=== PATIENT | female | born 1945 | race Asian ===

== ENCOUNTER 2023-07-21 06:32 | Inpatient (IN) | payer MEDICARE, OTHER ==
[~2023-07-21] VITALS: Ht 165.1 cm; Wt 101.0 kg
[2023-07-21] MEDS ORDERED: DEXAMETHASONE SOD PHOS 4 MG/ML VIAL IVP ONE (06:45)
[2023-07-21 07:00] VITALS: PULSE 64; RESP 31; O2SAT 98
[2023-07-21 07:07] LABS: BASOPHILS % (AUTO) 1.2 % (0.0-2.0); EOSINOPHILS % (AUTO) 4.9 % (1.0-6.0); HEMATOCRIT 26.6 % (36-46); HEMOGLOBIN 8.7 g/dL (12.0-16.0); LYMPHOCYTES # (AUTO) 0.8 K/uL (1.0-4.8); LYMPHOCYTES % (AUTO) 13.4 % (22.0-44.0); MEAN CORPUSCULAR HEMOGLOBIN 31.8 pg (26.0-34.0); MEAN CORPUSCULAR HGB CONC 32.7 G/dL (31.0-37.0); MEAN CORPUSCULAR VOLUME 98 fL (80-100); MONOCYTES # (AUTO) 0.5 K/uL (0.1-1.0); MONOCYTES % (AUTO) 7.8 % (2.0-9.0); NEUTROPHILS # (AUTO) 4.3 K/uL (1.8-7.7); NEUTROPHILS % (AUTO) 72.7 % (40.0-70.0); PLATELET COUNT (AUTO) 101 K/uL (150-450); RED BLOOD CELL COUNT(AUTO) 2.73 MIL/uL (4.00-5.20); RED CELL DISTRIBUTION WIDTH 17.2 % (11.5-14.5); WHITE BLOOD COUNT (AUTO) 5.9 K/uL (4.5-11.0)
[2023-07-21 07:14] LABS: ANION GAP 3 mmol/L (8-16); CALCIUM, TOTAL 9.7 mg/dL (8.8-10.5); CARBON DIOXIDE 37 mmol/L (22-29); CHLORIDE 102 mmol/L (98-107); CREATININE 3.18 mg/dL (0.60-1.30); GLOMERULAR FILTR. RATE CALC 14 mL/min (>60); GLUCOSE,RANDOM 136 mg/dL (70-110); POTASSIUM 4.1 mmol/L (3.5-5.1); SODIUM SERUM 142 mmol/L (136-145); UREA NITROGEN, BLOOD 81 mg/dL (7-18)
[2023-07-21 07:21] LABS: ALANINE AMINOTRANSFERASE 9 U/L (12-78); ALBUMIN 2.8 g/dL (3.4-5.0); ALKALINE PHOSPHATASE 92 U/L (46-116); ASPARTATE AMINOTRANSFERASE 29 U/L (15-37); CREATINE KINASE, TOTAL ONLY 51 U/L (26-192); PHOSPHORUS 4.1 mg/dL (2.5-4.9); TOTAL PROTEIN, SERUM 8.1 g/dL (6.4-8.2)
[2023-07-21 07:24] LABS: TROPONIN I-HIGH SENSITIVITY 35 ng/L (<51)
[2023-07-21] MEDS ORDERED: ONDANSETRON HCL 4 MG/2 ML VIAL IVP PRN (07:45)
[2023-07-21] MEDS ORDERED: ACETAMINOPHEN 325 MG TABLET PO PRN (07:45)
[2023-07-21] MEDS ORDERED: 0.9% SODIUM CHLORIDE 10 ML SYRINGE IVP PRN (07:45)
[2023-07-21 07:46] LABS: B-TYPE NATRIURETIC PEPTIDE 1630 pg/mL (0-100)
[2023-07-21 08:33] LABS: C-REACTIVE PROTEIN QUANT 1.02 mg/dL (0.00-0.30); FERRITIN 353 ng/mL (8-252)
[2023-07-21 08:35] LABS: COVID AG,FIA SOURCE NASOPHARYNGEAL
[2023-07-21 08:41] LABS: APPEARANCE,URINE HAZY (CLEAR); BILIRUBIN,URINE NEGATIVE (NEGATIVE); COLOR,URINE LIGHT YELLOW (YELLOW); GLUCOSE, URINE (UA) NEGATIVE (NEGATIVE); KETONES,URINE NEGATIVE (NEGATIVE); LEUKOCYTE ESTERASE ,URINE LARGE (NEGATIVE); NITRATE,URINE NEGATIVE (NEGATIVE); OCCULT BLOOD,URINE LARGE (NEGATIVE); PH,URINE 6.5 (5.0-8.0); PROTEIN,URINE 100-200,SEE CONFIRM mg/dL (NEGATIVE); SPECIFIC GRAVITIY, URINE 1.014 (1.003-1.030); UROBILINOGEN,URINE <=1.0 mg/dL (<=1.0)
[2023-07-21] MEDS ORDERED: DEXTROSE 5% IV ONE (08:45)
[2023-07-21] MEDS ORDERED: [UNRECOGNIZED DRUG - OTHER] IV ONE (08:45)
[2023-07-21] MEDS ORDERED: WATER IV ONE (08:45)
[2023-07-21 08:58] LABS: SULFOSALICYLIC ACID,URINE 2+ (Negative); WBC,URINE 26-50 /HPF (0-5)
[2023-07-21 08:59] LABS: BACTERIA,URINE Moderate /HPF (None Seen); YEAST,URINE Moderate /HPF (None Seen)
[2023-07-21 09:04] LABS: SARS-COV2 (COVID) ANTIGEN,FIA Negative (Negative)
[2023-07-21 09:08] LABS: INFLUENZA TYPE A NEGATIVE FOR TYPE A (NEGATIVE); INFLUENZA TYPE B NEGATIVE FOR TYPE B (NEGATIVE)
[2023-07-21 12:00] VITALS: BP 142/62; PULSE 56; RESP 25; TEMP 98.1; O2SAT 95
[2023-07-21] MEDS: CefTRIAXone 1 GM/DEXTROSE 50 ML IV SCH (12:22)
[2023-07-21 12:27] LABS: ABG BASE EXCESS 12.4 mmol/L (-2.0-3.0); ABG CARBOXYHEMOGLOBIN 1.6 % (0.0-1.5); ABG HCO3 34.1 mmol/L (22.0-26.0); ABG METHEMOGLOBIN 0.3 % (0.0-1.5); ABG OXYGEN SATURATION 92.9 % (95.0-98.0); ABG OXYHEMOGLOBIN 91.1 % (94.0-100.0); ABG PCO2 61 mmHg (35-45); ABG PH 7.401 (7.35-7.450); ABG TOTAL HEMOGLOBIN 10.9 G/dL (12.0-18.0); PO2, ARTERIAL BG 65.5 mmHg (75.0-83.0); SOURCE, BLOOD GAS ARTERIAL; TEMPERATURE, FAHRENHEIT, BG 97.5 FAHREN (96.0-98.6)
[2023-07-21 12:30] LABS: ALLEN TEST, BLOOD GAS Positive; O2 DEVICE,BLOOD GAS CANNULA (ROOM AIR); SITE, BLOOD GAS RT RADIAL
[2023-07-21] MEDS: DOXYCYCLINE HYCLATE 100 MG TABLET PO SCH ×2 (15:28→20:58)
[2023-07-21 16:00] VITALS: BP 144/60; PULSE 55; RESP 25; TEMP 98.9; O2SAT 93
[2023-07-21] MEDS ORDERED: GLUCAGON,HUMAN RECOMBINANT 1 MG VIAL IM PRN (18:00)
[2023-07-21] MEDS ORDERED: DEXTROSE 50%-WATER 25 GM/50 ML SYRINGE IVP PRN (18:00)
[2023-07-21] MEDS ORDERED: INSULIN LISPRO 100 UNITS/ML SQ PRN (18:00)
[2023-07-21] MEDS: INSULIN LISPRO 100 UNITS/ML SQ PRN ×2 (18:15→21:00)
[2023-07-21 20:00] VITALS: BP 138/68; PULSE 70; RESP 20; TEMP 99.1; O2SAT 98
[2023-07-21 20:17] VITALS: PULSE 72; RESP 23; O2SAT 94
[2023-07-22] VITALS (9 sets, daily range): BP systolic 133–168; BP diastolic 58–81; PULSE 56–78; RESP 20–28; TEMP 97.9–99.4; O2SAT 94–98
[2023-07-22 00:56] LABS: GLUCOSE,POINT OF CARE 220 MG/DL (70-110)
[2023-07-22 00:56] LABS: GLUCOSE,POINT OF CARE 194 MG/DL (70-110)
[2023-07-22] MEDS: DEXMEDETOMIDINE HCL 400 MCG in SODIUM CHLORIDE 0.9% 96 ML IV PRN ×2 (01:38→08:01)
[2023-07-22 02:54] LABS: ABG BASE EXCESS 11.7 mmol/L (-2.0-3.0); ABG CARBOXYHEMOGLOBIN 0.8 % (0.0-1.5); ABG HCO3 34.2 mmol/L (22.0-26.0); ABG METHEMOGLOBIN 0.3 % (0.0-1.5); ABG OXYGEN CONTENT 12.1 mL/dL (15.0-23.0); ABG OXYGEN SATURATION 91.9 % (95.0-98.0); ABG OXYHEMOGLOBIN 90.9 % (94.0-100.0); ABG PCO2 45 mmHg (35-45); ABG PH 7.508 (7.35-7.450); ABG TOTAL HEMOGLOBIN 9.4 G/dL (12.0-18.0); PO2, ARTERIAL BG 58.4 mmHg (75.0-83.0); SOURCE, BLOOD GAS ARTERIAL; TEMPERATURE, FAHRENHEIT, BG 98.6 FAHREN (96.0-98.6)
[2023-07-22 02:55] LABS: ALLEN TEST, BLOOD GAS Positive; O2 DEVICE,BLOOD GAS HI FL CANNULA (ROOM AIR); SITE, BLOOD GAS RT RADIAL
[2023-07-22 06:11] LABS: GLUCOSE,POINT OF CARE 219 MG/DL (70-110)
[2023-07-22 06:16] LABS: BASOPHILS % (AUTO) 0.1 % (0.0-2.0); EOSINOPHILS % (AUTO) 0 % (1.0-6.0); HEMATOCRIT 27.8 % (36-46); HEMOGLOBIN 8.9 g/dL (12.0-16.0); LYMPHOCYTES # (AUTO) 0.7 K/uL (1.0-4.8); LYMPHOCYTES % (AUTO) 14.7 % (22.0-44.0); MEAN CORPUSCULAR HGB CONC 31.9 G/dL (31.0-37.0); MEAN CORPUSCULAR VOLUME 97 fL (80-100); MONOCYTES # (AUTO) 0.2 K/uL (0.1-1.0); MONOCYTES % (AUTO) 3.4 % (2.0-9.0); NEUTROPHILS % (AUTO) 81.8 % (40.0-70.0); PLATELET COUNT (AUTO) 107 K/uL (150-450); RED BLOOD CELL COUNT(AUTO) 2.86 MIL/uL (4.00-5.20); RED CELL DISTRIBUTION WIDTH 17.1 % (11.5-14.5); WHITE BLOOD COUNT (AUTO) 4.9 K/uL (4.5-11.0)
[2023-07-22 06:32] LABS: ALBUMIN 2.9 g/dL (3.4-5.0); BILIRUBIN,TOTAL 0.7 mg/dL (0.1-1.0); CREATININE 3.11 mg/dL (0.60-1.30); POTASSIUM 4.5 mmol/L (3.5-5.1); TOTAL PROTEIN, SERUM 8.3 g/dL (6.4-8.2)
[2023-07-22] MEDS: INSULIN LISPRO 100 UNITS/ML SQ PRN ×3 (06:42→21:30)
[2023-07-22 08:58] LABS: BASOPHILS % (AUTO) 0.2 % (0.0-2.0); EOSINOPHILS % (AUTO) 0 % (1.0-6.0); HEMATOCRIT 26.3 % (36-46); HEMOGLOBIN 8.4 g/dL (12.0-16.0); LYMPHOCYTES # (AUTO) 0.7 K/uL (1.0-4.8); LYMPHOCYTES % (AUTO) 13.1 % (22.0-44.0); MEAN CORPUSCULAR HEMOGLOBIN 31.3 pg (26.0-34.0); MEAN CORPUSCULAR HGB CONC 32.1 G/dL (31.0-37.0); MEAN CORPUSCULAR VOLUME 98 fL (80-100); MONOCYTES # (AUTO) 0.3 K/uL (0.1-1.0); NEUTROPHILS # (AUTO) 4.3 K/uL (1.8-7.7); NEUTROPHILS % (AUTO) 80.7 % (40.0-70.0); PLATELET COUNT (AUTO) 101 K/uL (150-450); RED CELL DISTRIBUTION WIDTH 16.7 % (11.5-14.5); WHITE BLOOD COUNT (AUTO) 5.4 K/uL (4.5-11.0)
[2023-07-22] MEDS: DEXTROSE 5% IV SCH (09:43)
[2023-07-22] MEDS: DOXYCYCLINE HYCLATE 100 MG TABLET PO SCH ×2 (09:43→21:29)
[2023-07-22] MEDS: [UNRECOGNIZED DRUG - OTHER] IV SCH (09:43)
[2023-07-22] MEDS: WATER IV SCH (09:43)
[2023-07-22 10:53] LABS: ABG METHEMOGLOBIN 0.3 % (0.0-1.5); SOURCE, BLOOD GAS ARTERIAL
[2023-07-22 11:11] LABS: ABG BASE EXCESS 10.1 mmol/L (-2.0-3.0); ABG HCO3 32.7 mmol/L (22.0-26.0); ABG OXYGEN CONTENT 11.7 mL/dL (15.0-23.0); ABG OXYGEN SATURATION 91.1 % (95.0-98.0); ABG OXYHEMOGLOBIN 89.9 % (94.0-100.0); ABG PCO2 49 mmHg (35-45); ABG PH 7.462 (7.35-7.450); ABG TOTAL HEMOGLOBIN 9.2 G/dL (12.0-18.0); PO2, ARTERIAL BG 60.7 mmHg (75.0-83.0); TEMPERATURE, FAHRENHEIT, BG 98.6 FAHREN (96.0-98.6)
[2023-07-22 11:14] LABS: ABG A-A DIFF O2 241.1 mmHg (10-20.0); SITE, BLOOD GAS RT BRACHIAL
[2023-07-22 11:15] LABS: O2 DEVICE,BLOOD GAS HI FL CANNULA (ROOM AIR)
[2023-07-22] MEDS: CefTRIAXone 1 GM/DEXTROSE 50 ML IV SCH (12:08)
[2023-07-22 15:16] LABS: GLUCOSE,POINT OF CARE 232 MG/DL (70-110)
[2023-07-22 21:01] LABS: GLUCOSE,POINT OF CARE 221 MG/DL (70-110)
[2023-07-23] VITALS (7 sets, daily range): BP systolic 141–170; BP diastolic 51–116; PULSE 63–80; RESP 20–28; TEMP 97.9–98.8; O2SAT 95–99
[2023-07-23 00:42] LABS: GLUCOSE,POINT OF CARE 218 MG/DL (70-110)
[2023-07-23 05:36] LABS: GLUCOSE,POINT OF CARE 176 MG/DL (70-110)
[2023-07-23 06:20] LABS: BASOPHILS % (AUTO) 0.7 % (0.0-2.0); EOSINOPHILS % (AUTO) 0.8 % (1.0-6.0); HEMATOCRIT 24.7 % (36-46); HEMOGLOBIN 7.9 g/dL (12.0-16.0); LYMPHOCYTES # (AUTO) 1.1 K/uL (1.0-4.8); LYMPHOCYTES % (AUTO) 15.1 % (22.0-44.0); MEAN CORPUSCULAR HGB CONC 31.8 G/dL (31.0-37.0); MEAN CORPUSCULAR VOLUME 97 fL (80-100); MONOCYTES # (AUTO) 0.5 K/uL (0.1-1.0); MONOCYTES % (AUTO) 7.8 % (2.0-9.0); NEUTROPHILS # (AUTO) 5.3 K/uL (1.8-7.7); NEUTROPHILS % (AUTO) 75.6 % (40.0-70.0); PLATELET COUNT (AUTO) 105 K/uL (150-450); RED BLOOD CELL COUNT(AUTO) 2.54 MIL/uL (4.00-5.20); RED CELL DISTRIBUTION WIDTH 17.1 % (11.5-14.5)
[2023-07-23 06:28] LABS: CALCIUM, TOTAL 9.8 mg/dL (8.8-10.5); CREATININE 3.14 mg/dL (0.60-1.30); POTASSIUM 4.3 mmol/L (3.5-5.1)
[2023-07-23] MEDS ORDERED: DEXTROSE 5% IV SCH (08:00)
[2023-07-23] MEDS ORDERED: [UNRECOGNIZED DRUG - OTHER] IV SCH (08:00)
[2023-07-23] MEDS ORDERED: WATER IV SCH (08:00)
[2023-07-23] MEDS: DOXYCYCLINE HYCLATE 100 MG TABLET PO SCH ×2 (08:17→22:00)
[2023-07-23] MEDS: EPOETIN ALFA 10,000 UNITS/ML VIAL SQ SCH (08:17)
[2023-07-23] MEDS: DEXTROSE 5% IV SCH (08:19)
[2023-07-23] MEDS: WATER IV SCH (08:19)
[2023-07-23] MEDS: [UNRECOGNIZED DRUG - OTHER] IV SCH (08:19)
[2023-07-23] MEDS: INSULIN LISPRO 100 UNITS/ML SQ PRN ×3 (12:05→21:46)
[2023-07-23] MEDS: CefTRIAXone 1 GM/DEXTROSE 50 ML IV SCH (12:05)
[2023-07-23] MEDS: AcetaZOLAMIDE 250 MG TABLET PO SCH (12:05)
[2023-07-23] MEDS ORDERED: MAGNESIUM HYDROXIDE SUSPENSION 30 ML UDCUP PO PRN (12:30)
[2023-07-23] MEDS ORDERED: MORPHINE SULFATE 2 MG/ML SYRINGE IVP PRN (12:30)
[2023-07-23] MEDS ORDERED: ACETAMINOPHEN 325 MG TABLET PO PRN (12:30)
[2023-07-23] MEDS ORDERED: ONDANSETRON HCL 4 MG/2 ML VIAL IVP PRN (12:30)
[2023-07-23] MEDS ORDERED: IPRATROPIUM BROMIDE 0.5 MG/2.5 ML NEB SOLUTION NEB PRN (12:30)
[2023-07-23] MEDS ORDERED: OxyCODONE HCL/ACETAMINOPHEN 5-325 MG TABLET PO PRN (12:30)
[2023-07-23] MEDS ORDERED: BISACODYL 10 MG RECTAL RECTAL SUPPOSITORY PR PRN (12:30)
[2023-07-23] MEDS ORDERED: ALBUTEROL SULFATE 2.5 MG/0.5 ML NEB SOLUTION NEB PRN (12:30)
[2023-07-23] MEDS ORDERED: HydrALAZINE HCL 20 MG/ML VIAL IVP PRN (12:45)
[2023-07-23] MEDS ORDERED: AmLODIPine BESYLATE 10 MG TABLET PO ONE (12:45)
[2023-07-23] MEDS ORDERED: DULA0.75 SQ (12:51)
[2023-07-23] MEDS ORDERED: CARV25 PO (12:51)
[2023-07-23] MEDS ORDERED: CALC0.25 PO (12:51)
[2023-07-23] MEDS ORDERED: BUME1TAB34 PO (12:51)
[2023-07-23] MEDS ORDERED: MELA3TAB89 PO (12:51)
[2023-07-23] MEDS ORDERED: AMLO-257 PO (12:51)
[2023-07-23] MEDS ORDERED: ATOR40TA28 PO (12:51)
[2023-07-23] MEDS ORDERED: LEVO50TA28 PO (12:51)
[2023-07-23] MEDS ORDERED: INSU100I3 SQ (12:51)
[2023-07-23] MEDS ORDERED: LOSA-382 PO (12:51)
[2023-07-23] MEDS ORDERED: IPRA4AER IH (12:51)
[2023-07-23] MEDS ORDERED: FEBU40T PO (12:51)
[2023-07-23] MEDS ORDERED: CHOL25TA4 PO (12:51)
[2023-07-23] MEDS ORDERED: INSLAN SQ (12:51)
[2023-07-23] MEDS ORDERED: APIX5TAB PO (12:52)
[2023-07-23 13:36] LABS: GLUCOSE,POINT OF CARE 250 MG/DL (70-110)
[2023-07-23] MEDS: BUMETANIDE 0.25 MG/ML 4 ML VIAL IVP SCH (15:23)
[2023-07-23] MEDS: HEPARIN SODIUM,PORCINE 5,000 UNITS/ML VIAL SQ SCH ×2 (15:23→23:35)
[2023-07-23 18:21] LABS: GLUCOMETER DEV NAME(LOC) 5S.2C; GLUCOSE,POINT OF CARE 192 MG/DL (70-110)
[2023-07-23] MEDS: ATORVASTATIN CALCIUM 40 MG TABLET PO SCH (21:46)
[2023-07-24] VITALS (8 sets, daily range): BP systolic 124–146; BP diastolic 52–87; PULSE 64–120; RESP 18–22; TEMP 97.6–98.8; O2SAT 95
[2023-07-24] MEDS: BUMETANIDE 0.25 MG/ML 4 ML VIAL IVP SCH ×3 (00:07→17:18)
[2023-07-24 06:16] LABS: GLUCOMETER DEV NAME(LOC) 5S.2C; GLUCOSE,POINT OF CARE 205 MG/DL (70-110)
[2023-07-24] MEDS: INSULIN LISPRO 100 UNITS/ML SQ PRN ×4 (06:26→22:00)
[2023-07-24] MEDS: HEPARIN SODIUM,PORCINE 5,000 UNITS/ML VIAL SQ SCH ×2 (08:00→17:18)
[2023-07-24] MEDS: DOXYCYCLINE HYCLATE 100 MG TABLET PO SCH ×2 (09:32→21:19)
[2023-07-24] MEDS: PANTOPRAZOLE SODIUM 40 MG/VIAL IVP SCH (09:32)
[2023-07-24] MEDS: AcetaZOLAMIDE 250 MG TABLET PO SCH (09:33)
[2023-07-24] MEDS: DOCUSATE SODIUM 100 MG/10 ML LIQUID UDCUP PO SCH (09:33)
[2023-07-24] MEDS: AmLODIPine BESYLATE 10 MG TABLET PO SCH (09:33)
[2023-07-24] MEDS: CefTRIAXone 1 GM/DEXTROSE 50 ML IV SCH (11:29)
[2023-07-24 11:51] LABS: CALCIUM, TOTAL 9.4 mg/dL (8.8-10.5); CREATININE 2.93 mg/dL (0.60-1.30); POTASSIUM 4.3 mmol/L (3.5-5.1)
[2023-07-24 12:36] LABS: GLUCOMETER DEV NAME(LOC) 5S.2C; GLUCOSE,POINT OF CARE 157 MG/DL (70-110)
[2023-07-24] MEDS: ATORVASTATIN CALCIUM 40 MG TABLET PO SCH (21:19)
[2023-07-25] VITALS (7 sets, daily range): BP systolic 132–154; BP diastolic 55–65; PULSE 63–70; RESP 18–23; TEMP 97.9–98.8; O2SAT 96
[2023-07-25 00:16] LABS: GLUCOMETER DEV NAME(LOC) 5N.1C; GLUCOSE,POINT OF CARE 231 MG/DL (70-110)
[2023-07-25 00:17] LABS: GLUCOMETER DEV NAME(LOC) 5S.2C; GLUCOSE,POINT OF CARE 245 MG/DL (70-110)
[2023-07-25] MEDS: BUMETANIDE 0.25 MG/ML 4 ML VIAL IVP SCH ×3 (00:26→15:56)
[2023-07-25] MEDS: HEPARIN SODIUM,PORCINE 5,000 UNITS/ML VIAL SQ SCH ×3 (00:38→15:49)
[2023-07-25 01:12] LABS: GLUCOMETER DEV NAME(LOC) 5S.1B; GLUCOSE,POINT OF CARE 235 MG/DL (70-110)
[2023-07-25] MEDS: INSULIN LISPRO 100 UNITS/ML SQ PRN ×4 (06:29→20:55)
[2023-07-25 06:56] LABS: GLUCOMETER DEV NAME(LOC) 5S.1B; GLUCOSE,POINT OF CARE 145 MG/DL (70-110)
[2023-07-25] MEDS: EPOETIN ALFA 10,000 UNITS/ML VIAL SQ SCH (08:34)
[2023-07-25] MEDS: DOXYCYCLINE HYCLATE 100 MG TABLET PO SCH ×2 (08:34→20:53)
[2023-07-25] MEDS: PANTOPRAZOLE SODIUM 40 MG/VIAL IVP SCH (08:34)
[2023-07-25] MEDS: DOCUSATE SODIUM 100 MG/10 ML LIQUID UDCUP PO SCH (08:34)
[2023-07-25] MEDS: AmLODIPine BESYLATE 10 MG TABLET PO SCH (08:35)
[2023-07-25] MEDS: CefTRIAXone 1 GM/DEXTROSE 50 ML IV SCH (11:38)
[2023-07-25] MEDS: ATORVASTATIN CALCIUM 40 MG TABLET PO SCH (20:53)
[2023-07-26] VITALS (7 sets, daily range): BP systolic 136–152; BP diastolic 56–67; PULSE 65–75; RESP 18–26; TEMP 97.9–98.8; O2SAT 98
[2023-07-26] MEDS: BUMETANIDE 0.25 MG/ML 4 ML VIAL IVP SCH ×4 (00:16→23:50)
[2023-07-26] MEDS: ZOLPIDEM TARTRATE 5 MG TABLET PO PRN (03:12)
[2023-07-26 03:16] LABS: GLUCOMETER DEV NAME(LOC) 5N.2C; GLUCOSE,POINT OF CARE 254 MG/DL (70-110)
[2023-07-26 03:16] LABS: GLUCOMETER DEV NAME(LOC) 5N.2C; GLUCOSE,POINT OF CARE 207 MG/DL (70-110)
[2023-07-26 03:16] LABS: GLUCOMETER DEV NAME(LOC) 5N.2C; GLUCOSE,POINT OF CARE 227 MG/DL (70-110)
[2023-07-26] MEDS: INSULIN LISPRO 100 UNITS/ML SQ PRN ×4 (06:17→20:39)
[2023-07-26 06:31] LABS: BASOPHILS % (AUTO) 0.7 % (0.0-2.0); EOSINOPHILS % (AUTO) 5.3 % (1.0-6.0); HEMATOCRIT 27.4 % (36-46); HEMOGLOBIN 8.9 g/dL (12.0-16.0); LYMPHOCYTES # (AUTO) 1.4 K/uL (1.0-4.8); LYMPHOCYTES % (AUTO) 17.9 % (22.0-44.0); MEAN CORPUSCULAR HEMOGLOBIN 31.7 pg (26.0-34.0); MEAN CORPUSCULAR HGB CONC 32.4 G/dL (31.0-37.0); MEAN CORPUSCULAR VOLUME 98 fL (80-100); MONOCYTES # (AUTO) 0.6 K/uL (0.1-1.0); MONOCYTES % (AUTO) 7.8 % (2.0-9.0); NEUTROPHILS # (AUTO) 5.5 K/uL (1.8-7.7); NEUTROPHILS % (AUTO) 68.3 % (40.0-70.0); PLATELET COUNT (AUTO) 126 K/uL (150-450); RED CELL DISTRIBUTION WIDTH 16.7 % (11.5-14.5); WHITE BLOOD COUNT (AUTO) 8.1 K/uL (4.5-11.0)
[2023-07-26 07:18] LABS: ALBUMIN 2.6 g/dL (3.4-5.0); BILIRUBIN,TOTAL 0.4 mg/dL (0.1-1.0); CALCIUM, TOTAL 9.5 mg/dL (8.8-10.5); CREATININE 2.76 mg/dL (0.60-1.30); PHOSPHORUS 3.8 mg/dL (2.5-4.9); TOTAL PROTEIN, SERUM 7.3 g/dL (6.4-8.2)
[2023-07-26 08:52] LABS: GLUCOMETER DEV NAME(LOC) 5N.2C; GLUCOSE,POINT OF CARE 208 MG/DL (70-110)
[2023-07-26] MEDS: DOCUSATE SODIUM 100 MG/10 ML LIQUID UDCUP PO SCH (09:00)
[2023-07-26] MEDS: HEPARIN SODIUM,PORCINE 5,000 UNITS/ML VIAL SQ SCH ×4 (11:46→23:50)
[2023-07-26] MEDS: AmLODIPine BESYLATE 10 MG TABLET PO SCH (11:46)
[2023-07-26] MEDS: PANTOPRAZOLE SODIUM 40 MG/VIAL IVP SCH (11:46)
[2023-07-26] MEDS: CefTRIAXone 1 GM/DEXTROSE 50 ML IV SCH (11:47)
[2023-07-26] MEDS: DOXYCYCLINE HYCLATE 100 MG TABLET PO SCH ×2 (11:47→20:37)
[2023-07-26] MEDS ORDERED: FLUCONAZOLE 200 MG TABLET PO ONE (17:00)
[2023-07-26 18:02] LABS: GLUCOMETER DEV NAME(LOC) 5S.1B; GLUCOSE,POINT OF CARE 192 MG/DL (70-110)
[2023-07-26 18:02] LABS: GLUCOMETER DEV NAME(LOC) 5N.1C; GLUCOSE,POINT OF CARE 179 MG/DL (70-110)
[2023-07-26] MEDS: ATORVASTATIN CALCIUM 40 MG TABLET PO SCH (20:37)
[2023-07-27 00:51] LABS: GLUCOMETER DEV NAME(LOC) 5N.1C; GLUCOSE,POINT OF CARE 191 MG/DL (70-110)
[2023-07-27 03:20] VITALS: BP 149/63; PULSE 67; RESP 20; TEMP 98.5
[2023-07-27] MEDS: INSULIN LISPRO 100 UNITS/ML SQ PRN ×4 (06:37→20:46)
[2023-07-27 06:44] LABS: EOSINOPHILS % (AUTO) 6.2 % (1.0-6.0); HEMOGLOBIN 9.1 g/dL (12.0-16.0); LYMPHOCYTES # (AUTO) 1.5 K/uL (1.0-4.8); LYMPHOCYTES % (AUTO) 18.7 % (22.0-44.0); MEAN CORPUSCULAR HGB CONC 32.5 G/dL (31.0-37.0); MEAN CORPUSCULAR VOLUME 99 fL (80-100); MONOCYTES # (AUTO) 0.7 K/uL (0.1-1.0); MONOCYTES % (AUTO) 8.6 % (2.0-9.0); NEUTROPHILS # (AUTO) 5.1 K/uL (1.8-7.7); NEUTROPHILS % (AUTO) 65.5 % (40.0-70.0); PLATELET COUNT (AUTO) 136 K/uL (150-450); RED BLOOD CELL COUNT(AUTO) 2.85 MIL/uL (4.00-5.20); RED CELL DISTRIBUTION WIDTH 17.1 % (11.5-14.5); WHITE BLOOD COUNT (AUTO) 7.8 K/uL (4.5-11.0)
[2023-07-27 06:58] LABS: ALBUMIN 2.6 g/dL (3.4-5.0); ALKALINE PHOSPHATASE 82 U/L (46-116); ASPARTATE AMINOTRANSFERASE 18 U/L (15-37); BILIRUBIN,TOTAL 0.5 mg/dL (0.1-1.0); CALCIUM, TOTAL 9.7 mg/dL (8.8-10.5); CARBON DIOXIDE 37 mmol/L (22-29); CHLORIDE 100 mmol/L (98-107); CREATININE 2.72 mg/dL (0.60-1.30); GLOMERULAR FILTR. RATE CALC 17 mL/min (>60); GLUCOSE,RANDOM 160 mg/dL (70-110); POTASSIUM 4.4 mmol/L (3.5-5.1); TOTAL PROTEIN, SERUM 7.3 g/dL (6.4-8.2); UREA NITROGEN, BLOOD 75 mg/dL (7-18)
[2023-07-27 07:06] LABS: ANION GAP 8 mmol/L (8-16); SODIUM SERUM 145 mmol/L (136-145)
[2023-07-27 07:07] LABS: ALANINE AMINOTRANSFERASE < 6 U/L (12-78)
[2023-07-27 07:21] VITALS: BP 164/58; PULSE 66; RESP 18; TEMP 98.2
[2023-07-27 08:00] VITALS: O2SAT 98
[2023-07-27] MEDS: DOXYCYCLINE HYCLATE 100 MG TABLET PO SCH ×2 (08:37→20:47)
[2023-07-27] MEDS: AmLODIPine BESYLATE 10 MG TABLET PO SCH (08:37)
[2023-07-27] MEDS: PANTOPRAZOLE SODIUM 40 MG/VIAL IVP SCH (08:37)
[2023-07-27] MEDS: HEPARIN SODIUM,PORCINE 5,000 UNITS/ML VIAL SQ SCH ×3 (08:37→23:09)
[2023-07-27] MEDS: BUMETANIDE 0.25 MG/ML 4 ML VIAL IVP SCH (08:37)
[2023-07-27] MEDS: FLUCONAZOLE 100 MG TABLET PO SCH (08:37)
[2023-07-27] MEDS: DOCUSATE SODIUM 100 MG/10 ML LIQUID UDCUP PO SCH (08:41)
[2023-07-27 11:32] VITALS: BP 158/56; PULSE 69; RESP 18; TEMP 98.1
[2023-07-27] MEDS: CefTRIAXone 1 GM/DEXTROSE 50 ML IV SCH (11:44)
[2023-07-27 15:42] VITALS: BP 141/64; PULSE 69; RESP 18; TEMP 98.3
[2023-07-27 18:42] LABS: GLUCOMETER DEV NAME(LOC) 5S.2C; GLUCOSE,POINT OF CARE 205 MG/DL (70-110)
[2023-07-27 20:01] LABS: GLUCOMETER DEV NAME(LOC) 5N.2C; GLUCOSE,POINT OF CARE 281 MG/DL (70-110)
[2023-07-27 20:01] LABS: GLUCOMETER DEV NAME(LOC) 5N.1C; GLUCOSE,POINT OF CARE 158 MG/DL (70-110)
[2023-07-27 20:41] VITALS: BP 131/54; PULSE 70; RESP 24; TEMP 98.1
[2023-07-27 20:46] LABS: GLUCOMETER DEV NAME(LOC) 5S.2C; GLUCOSE,POINT OF CARE 276 MG/DL (70-110)
[2023-07-27] MEDS: ATORVASTATIN CALCIUM 40 MG TABLET PO SCH (20:47)
[2023-07-27] MEDS: ZOLPIDEM TARTRATE 5 MG TABLET PO PRN (23:09)
[2023-07-28] VITALS (7 sets, daily range): BP systolic 144–156; BP diastolic 52–75; PULSE 67–74; RESP 18–24; TEMP 97.9–98.5; O2SAT 98
[2023-07-28 05:57] LABS: GLUCOMETER DEV NAME(LOC) 5S.2C; GLUCOSE,POINT OF CARE 152 MG/DL (70-110)
[2023-07-28 06:48] LABS: EOSINOPHILS % (AUTO) 6.4 % (1.0-6.0); HEMATOCRIT 27.7 % (36-46); LYMPHOCYTES # (AUTO) 1.6 K/uL (1.0-4.8); MEAN CORPUSCULAR HEMOGLOBIN 31.9 pg (26.0-34.0); MEAN CORPUSCULAR HGB CONC 32.6 G/dL (31.0-37.0); MEAN CORPUSCULAR VOLUME 98 fL (80-100); MONOCYTES # (AUTO) 0.7 K/uL (0.1-1.0); MONOCYTES % (AUTO) 9.1 % (2.0-9.0); NEUTROPHILS # (AUTO) 5.1 K/uL (1.8-7.7); NEUTROPHILS % (AUTO) 63.5 % (40.0-70.0); PLATELET COUNT (AUTO) 148 K/uL (150-450); RED BLOOD CELL COUNT(AUTO) 2.84 MIL/uL (4.00-5.20); RED CELL DISTRIBUTION WIDTH 17.2 % (11.5-14.5)
[2023-07-28 07:11] LABS: ALBUMIN 2.5 g/dL (3.4-5.0); ALKALINE PHOSPHATASE 81 U/L (46-116); ANION GAP 4 mmol/L (8-16); ASPARTATE AMINOTRANSFERASE 19 U/L (15-37); BILIRUBIN,TOTAL 0.5 mg/dL (0.1-1.0); CALCIUM, TOTAL 9.7 mg/dL (8.8-10.5); CARBON DIOXIDE 35 mmol/L (22-29); CHLORIDE 99 mmol/L (98-107); CREATININE 2.82 mg/dL (0.60-1.30); GLOMERULAR FILTR. RATE CALC 16 mL/min (>60); GLUCOSE,RANDOM 144 mg/dL (70-110); POTASSIUM 4.3 mmol/L (3.5-5.1); SODIUM SERUM 138 mmol/L (136-145); TOTAL PROTEIN, SERUM 7.1 g/dL (6.4-8.2); UREA NITROGEN, BLOOD 76 mg/dL (7-18)
[2023-07-28 07:12] LABS: ALANINE AMINOTRANSFERASE < 6 U/L (12-78)
[2023-07-28 07:29] LABS: PHOSPHORUS 3.6 mg/dL (2.5-4.9)
[2023-07-28] MEDS: DOXYCYCLINE HYCLATE 100 MG TABLET PO SCH ×2 (08:46→20:49)
[2023-07-28] MEDS: HEPARIN SODIUM,PORCINE 5,000 UNITS/ML VIAL SQ SCH ×3 (08:46→20:52)
[2023-07-28] MEDS: EPOETIN ALFA 10,000 UNITS/ML VIAL SQ SCH (08:47)
[2023-07-28] MEDS: AmLODIPine BESYLATE 10 MG TABLET PO SCH (08:47)
[2023-07-28] MEDS: FLUCONAZOLE 100 MG TABLET PO SCH (08:47)
[2023-07-28] MEDS: PANTOPRAZOLE SODIUM 40 MG/VIAL IVP SCH (08:47)
[2023-07-28] MEDS: DOCUSATE SODIUM 100 MG/10 ML LIQUID UDCUP PO SCH (08:54)
[2023-07-28] MEDS: CefTRIAXone 1 GM/DEXTROSE 50 ML IV SCH (11:12)
[2023-07-28] MEDS: INSULIN LISPRO 100 UNITS/ML SQ PRN ×3 (11:15→20:51)
[2023-07-28] MEDS: ZOLPIDEM TARTRATE 5 MG TABLET PO PRN (20:49)
[2023-07-28] MEDS: ATORVASTATIN CALCIUM 40 MG TABLET PO SCH (20:49)
[2023-07-28] MEDS: DOCUSATE SODIUM 100 MG CAPSULE PO SCH (20:49)
[2023-07-28] MEDS: CARVEDILOL 25 MG TABLET PO SCH (20:49)
[2023-07-28] MEDS: APIXABAN 5 MG TABLET PO SCH (20:49)
[2023-07-28] MEDS ORDERED: MELATONIN 3 MG TABLET PO SCH (21:00)
[2023-07-28 23:11] LABS: GLUCOMETER DEV NAME(LOC) 5S.1B; GLUCOSE,POINT OF CARE 210 MG/DL (70-110)
[2023-07-29 00:31] LABS: GLUCOMETER DEV NAME(LOC) 5N.1C; GLUCOSE,POINT OF CARE 235 MG/DL (70-110)
[2023-07-29 00:31] LABS: GLUCOMETER DEV NAME(LOC) 5N.1C; GLUCOSE,POINT OF CARE 232 MG/DL (70-110)
[2023-07-29 00:34] VITALS: BP 145/60; PULSE 70; RESP 18; TEMP 99.2
[2023-07-29 04:08] VITALS: BP 142/54; PULSE 65; RESP 18; TEMP 98.1
[2023-07-29] MEDS: INSULIN LISPRO 100 UNITS/ML SQ PRN ×3 (05:49→18:06)
[2023-07-29 07:12] LABS: BASOPHILS % (AUTO) 1.1 % (0.0-2.0); EOSINOPHILS % (AUTO) 7.7 % (1.0-6.0); HEMATOCRIT 27.8 % (36-46); HEMOGLOBIN 9.1 g/dL (12.0-16.0); LYMPHOCYTES # (AUTO) 1.3 K/uL (1.0-4.8); LYMPHOCYTES % (AUTO) 22.4 % (22.0-44.0); MEAN CORPUSCULAR HGB CONC 32.6 G/dL (31.0-37.0); MEAN CORPUSCULAR VOLUME 98 fL (80-100); MONOCYTES # (AUTO) 0.6 K/uL (0.1-1.0); MONOCYTES % (AUTO) 10.9 % (2.0-9.0); NEUTROPHILS # (AUTO) 3.4 K/uL (1.8-7.7); NEUTROPHILS % (AUTO) 57.9 % (40.0-70.0); PLATELET COUNT (AUTO) 141 K/uL (150-450); RED BLOOD CELL COUNT(AUTO) 2.83 MIL/uL (4.00-5.20); RED CELL DISTRIBUTION WIDTH 17.1 % (11.5-14.5); WHITE BLOOD COUNT (AUTO) 5.9 K/uL (4.5-11.0)
[2023-07-29] MEDS: HEPARIN SODIUM,PORCINE 5,000 UNITS/ML VIAL SQ SCH (07:26)
[2023-07-29 07:29] LABS: ALANINE AMINOTRANSFERASE < 6 U/L (12-78); ALBUMIN 2.5 g/dL (3.4-5.0); ALKALINE PHOSPHATASE 73 U/L (46-116); ANION GAP 1 mmol/L (8-16); ASPARTATE AMINOTRANSFERASE 22 U/L (15-37); BILIRUBIN,TOTAL 0.5 mg/dL (0.1-1.0); CALCIUM, TOTAL 9.9 mg/dL (8.8-10.5); CARBON DIOXIDE 34 mmol/L (22-29); CHLORIDE 101 mmol/L (98-107); CREATININE 2.79 mg/dL (0.60-1.30); GLOMERULAR FILTR. RATE CALC 16 mL/min (>60); GLUCOSE,RANDOM 130 mg/dL (70-110); POTASSIUM 4.3 mmol/L (3.5-5.1); SODIUM SERUM 136 mmol/L (136-145); TOTAL PROTEIN, SERUM 6.8 g/dL (6.4-8.2); UREA NITROGEN, BLOOD 72 mg/dL (7-18)
[2023-07-29 07:38] VITALS: BP 169/61; PULSE 67; RESP 20; TEMP 97.7
[2023-07-29 08:16] LABS: GLUCOMETER DEV NAME(LOC) 5N.1C; GLUCOSE,POINT OF CARE 146 MG/DL (70-110)
[2023-07-29] MEDS: PANTOPRAZOLE SODIUM 40 MG/VIAL IVP SCH (08:36)
[2023-07-29] MEDS: DOXYCYCLINE HYCLATE 100 MG TABLET PO SCH (08:37)
[2023-07-29] MEDS: AmLODIPine BESYLATE 10 MG TABLET PO SCH (08:37)
[2023-07-29] MEDS: DOCUSATE SODIUM 100 MG CAPSULE PO SCH (08:37)
[2023-07-29] MEDS: APIXABAN 5 MG TABLET PO SCH (08:38)
[2023-07-29] MEDS: CARVEDILOL 25 MG TABLET PO SCH (08:38)
[2023-07-29 08:42] LABS: PHOSPHORUS 3.6 mg/dL (2.5-4.9)
[2023-07-29] MEDS: FLUCONAZOLE 100 MG TABLET PO SCH (08:53)
[2023-07-29] MEDS ORDERED: CALCITRIOL 0.25 MCG CAPSULE PO SCH (09:00)
[2023-07-29] MEDS ORDERED: BUMETANIDE 1 MG TABLET PO SCH (09:00)
[2023-07-29] MEDS ORDERED: INSULIN GLARGINE,HUM.REC.ANLOG 100 UNITS/ML SQ SCH (09:00)
[2023-07-29] MEDS ORDERED: FEBUXOSTAT 40 MG TABLET PO SCH (09:00)
[2023-07-29] MEDS ORDERED: LEVOTHYROXINE SODIUM 50 MCG TABLET PO SCH (09:00)
[2023-07-29] MEDS ORDERED: CHOLECALCIFEROL (VIT D3) 1,000 UNITS [25 MCG] TABLET PO SCH (09:00)
[2023-07-29] MEDS ORDERED: BUMETANIDE 0.25 MG/ML 4 ML VIAL IVP SCH (10:30)
[2023-07-29] MEDS: CefTRIAXone 1 GM/DEXTROSE 50 ML IV SCH (11:21)
[2023-07-29 11:50] VITALS: BP 136/57; PULSE 61; RESP 19; TEMP 98
[2023-07-29 11:57] LABS: GLUCOMETER DEV NAME(LOC) 5S.1B; GLUCOSE,POINT OF CARE 194 MG/DL (70-110)
[2023-07-29] MEDS ORDERED: AMLO-258 PO (14:54)
[2023-07-29] MEDS ORDERED: CEFT1VIA65 IV (14:55)
[2023-07-29] MEDS ORDERED: DOXY-354 PO (14:57)
[2023-07-29] MEDS ORDERED: LEVO50 PO (14:57)
[2023-07-29] MEDS ORDERED: MELA3TAB89 PO ×2 (14:58→14:59)
[2023-07-29] MEDS ORDERED: ACET-2247 PO (15:02)
[2023-07-29] MEDS ORDERED: ALBU2.5V39 NEB (15:03)
[2023-07-29 16:10] VITALS: BP 138/58; PULSE 63; RESP 18; TEMP 97.4
[2023-07-29 17:46] LABS: COVID AG,FIA SOURCE NASOPHARYNGEAL
[2023-07-29 17:49] LABS: SARS-COV2 (COVID) ANTIGEN,FIA Negative (Negative)
[2023-07-29 18:01] LABS: GLUCOMETER DEV NAME(LOC) 5N.2C; GLUCOSE,POINT OF CARE 195 MG/DL (70-110)
== END 2023-07-29 18:25 | DRG 871 ==
LOC: EMS 06:33 → ICU 08:10 → 5S 07-23 16:50
PROVIDERS: ADMIT Hospitalist; ATTEND Hospitalist
PROC: 5A0935A Assistance with Respiratory Ventilation, Less than 24 Consecutive Hours, High Flow/Velocity Cannula (ICD-10-PCS; 2023-07-21)
PROC: 5A09357 Assistance with Respiratory Ventilation, Less than 24 Consecutive Hours, Continuous Positive Airway Pressure (ICD-10-PCS; principal; 2023-07-22)
DX: A41.9 Sepsis, unspecified organism (principal); J12.9 Viral pneumonia, unspecified; J96.01 Acute respiratory failure with hypoxia; N18.6 End stage renal disease; N17.9 Acute kidney failure, unspecified; E87.29 Other acidosis; I13.2 Hypertensive heart and chronic kidney disease with heart failure and with stage 5 chronic kidney disease, or end stage renal disease; T83.518A Infection and inflammatory reaction due to other urinary catheter, initial encounter; E66.2 Morbid (severe) obesity with alveolar hypoventilation; B37.49 Other urogenital candidiasis; I50.9 Heart failure, unspecified; D64.9 Anemia, unspecified; D69.6 Thrombocytopenia, unspecified; S80.11XA Contusion of right lower leg, initial encounter; E11.22 Type 2 diabetes mellitus with diabetic chronic kidney disease; E03.9 Hypothyroidism, unspecified; I48.91 Unspecified atrial fibrillation; M47.814 Spondylosis without myelopathy or radiculopathy, thoracic region; I25.10 Atherosclerotic heart disease of native coronary artery without angina pectoris; I70.0 Atherosclerosis of aorta; R79.89 Other specified abnormal findings of blood chemistry; Y84.6 Urinary catheterization as the cause of abnormal reaction of the patient, or of later complication, without mention of misadventure at the time of the procedure; Z20.822 Contact with and (suspected) exposure to COVID-19; X58.XXXA Exposure to other specified factors, initial encounter; Y93.89 Activity, other specified; Y92.89 Other specified places as the place of occurrence of the external cause; Y99.8 Other external cause status; Z68.37 Body mass index [BMI] 37.0-37.9, adult; Z88.8 Allergy status to other drugs, medicaments and biological substances; Z79.899 Other long term (current) drug therapy; Y92.128 Other place in nursing home as the place of occurrence of the external cause
CPT/HCPCS: 36600; 71045; 71250; 76770; 76881; 80048; 80053; 81001; 81002; 82550; 82728; 82805; 82962; 83605; 83735; 83880; 84100; 84145; 84484; 85025; 86140; 87040; 87081; 87086; 87186; 87804; 93005; 94660; 97110; 97116; 97162; 97166; 97530; 97535; 99291; C9113; G0378; J0696; J0885; J1100; J1644; J1815; J2405; J3490; J7050; J7060; Q9967; 36415-L1; 36415-TC